=== PATIENT | female | born 1995 | race Two or more races ===

== ENCOUNTER 2020-01-15 15:12 | Emergency (ER) | payer MEDICAID, OTHER ==
[~2020-01-15] VITALS: Ht 157.5 cm; Wt 68.0 kg
[2020-01-15 15:29] VITALS: BP 112/83
[2020-01-15] MEDS ORDERED: cefTRIAXone SOD 1,000 MG VL IM ONE (16:45)
[2020-01-15] MEDS ORDERED: LIDOCAINE 1% HCL (LOCAL ANESTH.) INJ 20ML MDV IJ ONE (16:45)
[2020-01-15] MEDS ORDERED: ONDANSETRON ODT 4 MG TAB PO ONE (17:30)
== END 2020-01-15 17:55 | disposition home or self-care (01) ==
LOC: EDBD → ER 15:12
DX: L02.31 Cutaneous abscess of buttock (principal)
CPT/HCPCS: 10060; 96372; 99283; J0696; J2001; Q0162

== ENCOUNTER 2020-01-18 14:29 | Emergency (ER) | payer SELFPAY ==
[~2020-01-18] VITALS: Ht 157.5 cm; Wt 68.0 kg
[2020-01-18 14:42] VITALS: BP 136/80
== END 2020-01-18 16:27 | disposition home or self-care (01) ==
LOC: ER 14:29 → EDBD 14:29 → ER 16:27
DX: T81.49XD Infection following a procedure, other surgical site, subsequent encounter (principal); X58.XXXD Exposure to other specified factors, subsequent encounter

== ENCOUNTER 2020-01-22 13:26 | Emergency (ER) | payer MEDICAID ==
[~2020-01-22] VITALS: Ht 157.5 cm; Wt 68.0 kg
[2020-01-22 14:06] VITALS: BP 113/78
== END 2020-01-22 16:31 | disposition home or self-care (01) ==
LOC: ER 13:26
DX: L02.31 Cutaneous abscess of buttock (principal)